=== PATIENT | female | born 1990 | race Caucasian/White ===

== ENCOUNTER 2018-10-15 14:30 | Outpatient (CLI) | payer OTHER ==
[2018-10-15 15:00] LABS: ADD MAN DIFF? NO
[2018-10-15 15:03] LABS: WHITE BLOOD COUNT 10.3 10^3/ul (4.8-10.8)
[2018-10-15 15:03] LABS: BASOPHILS % 0.4 % (0.0-2.0); EOSINOPHILS # 0.2 10^3/ul (0.0-0.5); EOSINOPHILS % 1.5 % (0.0-7.0); HEMATOCRIT 36.7 % (37.0-47.0); HEMOGLOBIN 12.5 g/dl (12.0-16.0); LYMPHOCYTES # 1.9 10^3/ul (0.8-2.9); LYMPHOCYTES % 17.9 % (15.0-51.0); MEAN CORPUSCULAR HEMOGLOBIN 30.4 pg (29.0-33.0); MEAN CORPUSCULAR HGB CONC 34.1 g/dl (32.0-37.0); MEAN CORPUSCULAR VOLUME 89.3 fl (82.0-101.0); MEAN PLATELET VOLUME 9.1 fl (7.4-10.4); MONOCYTE # 0.6 10^3/ul (0.3-0.9); MONOCYTES % 5.4 % (0.0-11.0); NEUTROPHIL # 7.7 10^3/ul (1.6-7.5); NEUTROPHILS % 74.2 % (39.0-77.0); PLATELET COUNT 364 10^3/UL (140-415); RED BLOOD COUNT 4.11 10^6/ul (4.20-5.40); RED CELL DISTRIBUTION WIDTH 13.3 % (11.5-14.5)
[2018-10-15 15:20] LABS: ALANINE AMINOTRANSFERASE 10 IU/L (13-69); ALBUMIN 3.6 g/dl (3.3-4.9); ALKALINE PHOSPHATASE 192 IU/L (42-121); ANION GAP 9 (5-13); ASPARTATE AMINO TRANSFERASE 18 IU/L (15-46); BILIRUBIN,INDIRECT 0.2 mg/dl (0-1.1); BILIRUBIN,TOTAL 0.2 mg/dl (0.2-1.3); BLOOD UREA NITROGEN 5 mg/dl (7-20); CALCIUM 9.6 mg/dl (8.4-10.2); CARBON DIOXIDE 19 mmol/L (21-31); CHLORIDE 111 mmol/L (97-110); CREATININE 0.38 mg/dl (0.44-1.00); Estimated GFR > 60 mL/min (>60); GLUCOSE 103 mg/dl (70-220); POTASSIUM 3.8 mmol/L (3.5-5.1); SODIUM 139 mmol/L (135-144); TOTAL PROTEIN 7.2 g/dl (6.1-8.1); URIC ACID 4.5 mg/dl (3.1-7.9)
[2018-10-15 15:23] LABS: ADD UMIC YES; UR ASCORBIC ACID 20 mg/dL (NEGATIVE); UR BACTERIA FEW /HPF (NONE SEEN); UR BILIRUBIN (Dip) NEGATIVE (NEGATIVE); UR BLOOD (Dip) 2+ mg/dL (NEGATIVE); UR CLARITY SLIGHTLY CLOUDY (CLEAR); UR COLOR YELLOW (YELLOW); UR GLUCOSE (Dip) NEGATIVE (NEGATIVE); UR KETONES (Dip) TRACE mg/dL (NEGATIVE); UR LEUKOCYTE ESTERASE (Dip) 1+ Leu/ul (NEGATIVE); UR MUCUS FEW /HPF (NONE SEEN); UR NITRITE (Dip) NEGATIVE (NEGATIVE); UR RBC 4 /HPF (0-5); UR SPECIFIC GRAVITY (Dip) 1.006 (1.003-1.030); UR SQUAMOUS EPITHELIAL CELL MODERATE /HPF (FEW); UR TOTAL PROTEIN (Dip) NEGATIVE (NEGATIVE); UR UROBILINOGEN (Dip) NEGATIVE (NEGATIVE); UR WBC 9 /HPF (0-5)
[2018-10-15 16:01] LABS: INR 1.01; PARTIAL THROMBOPLASTIN TIME 29.7 Sec (23.0-35.0); PROTIME 13.4 Sec (11.9-14.9)
== END 2018-10-15 16:27 | disposition home or self-care (01) ==
LOC: OBT 14:30 → L-D 14:30 → OBT 16:27
DX: O13.3 Gestational [pregnancy-induced] hypertension without significant proteinuria, third trimester (principal); Z3A.36 36 weeks gestation of pregnancy
CPT/HCPCS: 76818; 80053; 81001; 84560; 85025; 85384; 85610; 85730

== ENCOUNTER 2018-10-24 11:52 | Inpatient (IN) | payer OTHER ==
[2018-10-24 13:08] LABS: ADD UMIC YES; UR ASCORBIC ACID NEGATIVE (NEGATIVE); UR BACTERIA FEW /HPF (NONE SEEN); UR BILIRUBIN (Dip) NEGATIVE (NEGATIVE); UR BLOOD (Dip) NEGATIVE (NEGATIVE); UR CLARITY CLOUDY (CLEAR); UR COLOR YELLOW (YELLOW); UR GLUCOSE (Dip) NEGATIVE (NEGATIVE); UR KETONES (Dip) NEGATIVE (NEGATIVE); UR LEUKOCYTE ESTERASE (Dip) 2+ Leu/ul (NEGATIVE); UR MUCUS FEW /HPF (NONE SEEN); UR NITRITE (Dip) NEGATIVE (NEGATIVE); UR RBC 1 /HPF (0-5); UR SPECIFIC GRAVITY (Dip) 1.017 (1.003-1.030); UR SQUAMOUS EPITHELIAL CELL MANY /HPF (FEW); UR TOTAL PROTEIN (Dip) NEGATIVE (NEGATIVE); UR UROBILINOGEN (Dip) NEGATIVE (NEGATIVE); UR WBC 9 /HPF (0-5)
[2018-10-24 13:36] LABS: ADD MAN DIFF? NO
[2018-10-24 13:38] LABS: BASOPHILS % 0.3 % (0.0-2.0); EOSINOPHILS # 0.2 10^3/ul (0.0-0.5); EOSINOPHILS % 1.6 % (0.0-7.0); HEMATOCRIT 36.4 % (37.0-47.0); HEMOGLOBIN 12.4 g/dl (12.0-16.0); LYMPHOCYTES # 2.1 10^3/ul (0.8-2.9); LYMPHOCYTES % 17.8 % (15.0-51.0); MEAN CORPUSCULAR HEMOGLOBIN 30.6 pg (29.0-33.0); MEAN CORPUSCULAR HGB CONC 34.1 g/dl (32.0-37.0); MEAN CORPUSCULAR VOLUME 89.9 fl (82.0-101.0); MEAN PLATELET VOLUME 8.9 fl (7.4-10.4); MONOCYTE # 0.7 10^3/ul (0.3-0.9); NEUTROPHIL # 8.5 10^3/ul (1.6-7.5); NEUTROPHILS % 73.9 % (39.0-77.0); PLATELET COUNT 356 10^3/UL (140-415); RED BLOOD COUNT 4.05 10^6/ul (4.20-5.40); RED CELL DISTRIBUTION WIDTH 13.5 % (11.5-14.5)
[2018-10-24 13:38] LABS: WHITE BLOOD COUNT 11.5 10^3/ul (4.8-10.8)
[2018-10-24 13:57] LABS: INR 0.95; PROTIME 12.8 Sec (11.9-14.9)
[2018-10-24 13:58] LABS: PARTIAL THROMBOPLASTIN TIME 30.7 Sec (23.0-35.0)
[2018-10-24 13:59] LABS: ALANINE AMINOTRANSFERASE 10 IU/L (13-69); ALBUMIN 3.4 g/dl (3.3-4.9); ALBUMIN/GLOBULIN RATIO 0.94; ALKALINE PHOSPHATASE 222 IU/L (42-121); ANION GAP 9 (5-13); ASPARTATE AMINO TRANSFERASE 19 IU/L (15-46); BILIRUBIN,INDIRECT 0.2 mg/dl (0-1.1); BILIRUBIN,TOTAL 0.2 mg/dl (0.2-1.3); BLOOD UREA NITROGEN 6 mg/dl (7-20); CALCIUM 8.9 mg/dl (8.4-10.2); CARBON DIOXIDE 21 mmol/L (21-31); CHLORIDE 111 mmol/L (97-110); CREATININE 0.42 mg/dl (0.44-1.00); Estimated GFR > 60 mL/min (>60); GLUCOSE 77 mg/dl (70-220); SODIUM 141 mmol/L (135-144); URIC ACID 4.5 mg/dl (3.1-7.9)
[2018-10-24] MEDS ORDERED: CARBOPROST 250 MCG INJ IM (16:00)
[2018-10-24] MEDS ORDERED: MISOPROSTOL 200 MCG TAB PR (16:00)
[2018-10-24] MEDS ORDERED: IBUPROFEN 600 MG TAB PO (16:00)
[2018-10-24] MEDS ORDERED: LIDOCAINE 1% (MPF) 30 ML INJ INJ (16:00)
[2018-10-24] MEDS ORDERED: OXYTOCIN 30 UNITS/LR 500 ML IV ×3 (16:00)
[2018-10-24] MEDS ORDERED: METHYLERGONOVINE 0.2 MG INJ IM (16:00)
[2018-10-24] MEDS ORDERED: AMPICILLIN 2 GM/NS (PMX) 100 ML IV (16:00)
[2018-10-24] MEDS ORDERED: BUTORPHANOL 2 MG INJ IV (16:00)
[2018-10-24] MEDS: LACTATED RINGER'S 1,000 ML IV (16:19)
[2018-10-24 16:42] LABS: HEPATITIS B SURFACE ANTIGEN NEGATIVE (NEGATIVE)
[2018-10-24] MEDS: MAGNESIUM SULFATE 4 GM/100 ML 100 ML IV (17:09)
[2018-10-24] MEDS: MAGNESIUM SULFATE 20 GM/500 ML 500 ML IV (17:37)
[2018-10-24] MEDS: MISOPROSTOL 50 MCG CAPSULE PO ×2 (17:46→22:12)
[2018-10-24] MEDS ORDERED: AMPICILLIN 1 GM/NS (PMX) 50 ML IV (19:00)
[2018-10-25] MEDS: LACTATED RINGER'S 1,000 ML IV ×3 (01:06→19:15)
[2018-10-25 01:42] LABS: MAGNESIUM 4.5 mg/dl (1.7-2.5)
[2018-10-25] MEDS: MISOPROSTOL 50 MCG CAPSULE PO ×4 (02:06→14:01)
[2018-10-25] MEDS: MAGNESIUM SULFATE 20 GM/500 ML 500 ML IV ×2 (03:16→13:41)
[2018-10-25 06:12] LABS: MAGNESIUM 4.8 mg/dl (1.7-2.5)
[2018-10-25] MEDS: ACETAMINOPHEN 1000MG/100ML IV 100 ML IVPB (08:38)
[2018-10-25 13:01] LABS: MAGNESIUM 5.1 mg/dl (1.7-2.5)
[2018-10-25 15:09] LABS: RAPID PLASMA REAGIN NONREACTIVE (NR)
[2018-10-25] MEDS: LABETALOL HCL 20MG INJ IV (16:13)
[2018-10-25 19:05] LABS: MAGNESIUM 5.3 mg/dl (1.7-2.5)
[2018-10-25] MEDS: OXYTOCIN 30 UNITS/LR 500 ML IV (20:02)
[2018-10-26] MEDS: MAGNESIUM SULFATE 20 GM/500 ML 500 ML IV ×2 (00:20→10:58)
[2018-10-26 01:51] LABS: MAGNESIUM 5.1 mg/dl (1.7-2.5)
[2018-10-26] MEDS: LACTATED RINGER'S 1,000 ML IV ×2 (04:51→11:06)
[2018-10-26] MEDS ORDERED: LIDOCAINE 1.5%/EPI MPF (SDV) 30 ML VIAL (07:00)
[2018-10-26] MEDS ORDERED: OXYTOCIN 30 UNITS/LR 500 ML BAG IV (07:00)
[2018-10-26 07:41] LABS: MAGNESIUM 5.3 mg/dl (1.7-2.5)
[2018-10-26] MEDS ORDERED: FENTAnyl 2MCG/ML-ROPIV 0.2% 100 ML (08:27)
[2018-10-26] MEDS ORDERED: FENTAnyl 2MCG/ML-ROPIV 0.2% 100 ML BAG EPI (08:30)
[2018-10-26] MEDS ORDERED: NALOXONE (0.4 MG/ML) INJ IV ×2 (08:30→17:30)
[2018-10-26] MEDS ORDERED: ONDANSETRON 4 MG INJ IV ×3 (08:30→18:00)
[2018-10-26] MEDS ORDERED: DIPHENHYDRAMINE 50 MG INJ IV ×2 (08:30→17:30)
[2018-10-26] MEDS ORDERED: OXYTOCIN 30 UNITS/LR 500 ML IV ×2 (14:30→18:00)
[2018-10-26] MEDS ORDERED: CARBOPROST 250 MCG INJ IM ×2 (14:30→18:00)
[2018-10-26] MEDS ORDERED: MISOPROSTOL 200 MCG TAB PR ×2 (14:30→18:00)
[2018-10-26] MEDS: CEFAZOLIN 3 GM in DEXTROSE 5% 100 ML IV (14:30)
[2018-10-26] MEDS ORDERED: METHYLERGONOVINE 0.2 MG INJ IM ×2 (14:30→18:00)
[2018-10-26] MEDS ORDERED: AZITHROMYCIN 500MG/NS (PMX) 250 ML IVPB (15:00)
[2018-10-26] MEDS ORDERED: OXYTOCIN 10 UNIT INJ (15:04)
[2018-10-26] MEDS ORDERED: morphine SULFATE/PF (10 MG/10 ML) INJ (15:05)
[2018-10-26] MEDS ORDERED: FENTAnyl 50 MCG/ML VIAL ×2 (15:46→16:14)
[2018-10-26] MEDS ORDERED: MIDAZOLAM 1 MG/ML 2 ML INJ ×2 (15:47→16:08)
[2018-10-26] MEDS ORDERED: KETAMINE (50 MG/ML) 10 ML VIAL (16:12)
[2018-10-26] MEDS ORDERED: PHENYLephrine 10 MG INJ (16:22)
[2018-10-26] MEDS ORDERED: morphine 2 MG INJ IV (17:30)
[2018-10-26] MEDS ORDERED: SENNA/DOCUSATE NA (8.6MG/50MG) TAB PO (18:00)
[2018-10-26] MEDS ORDERED: LANOLIN HPA 1 PKT TOP (18:00)
[2018-10-26] MEDS ORDERED: BISACODYL 10 MG SUPP PR (18:00)
[2018-10-26] MEDS ORDERED: OXYCODONE/ACETAMINOPHEN (5/325) TAB PO (18:00)
[2018-10-26] MEDS ORDERED: ACETAMINOPHEN 325 MG TAB PO (18:00)
[2018-10-26] MEDS: KETOROLAC 30 MG INJ IV (18:07)
[2018-10-26] MEDS: OXYTOCIN 30 UNITS/LR 500 ML IV (18:19)
[2018-10-26] MEDS: AZITHROMYCIN 500MG/NS (PMX) 250 ML IV (18:34)
[2018-10-26] MEDS ORDERED: LABETALOL HCL 20MG INJ IV (19:30)
[2018-10-26] MEDS ORDERED: CA GLUCONATE (GM) 10% 10ML INJ IV (21:30)
[2018-10-27] MEDS: MAGNESIUM SULFATE 20 GM/500 ML 500 ML IV ×3 (00:12→13:42)
[2018-10-27] MEDS: OXYTOCIN 30 UNITS/LR 500 ML IV (00:13)
[2018-10-27 01:05] LABS: MAGNESIUM 4.8 mg/dl (1.7-2.5)
[2018-10-27] MEDS: CEFAZOLIN 1 GM/50 ML (PMX) 50 ML IVPB ×4 (02:00→17:39)
[2018-10-27] MEDS: LACTATED RINGER'S 1,000 ML IV (06:13)
[2018-10-27] MEDS: KETOROLAC 30 MG INJ IV ×2 (07:07→13:27)
[2018-10-27 08:17] LABS: ADD MAN DIFF? NO
[2018-10-27 08:19] LABS: WHITE BLOOD COUNT 11.2 10^3/ul (4.8-10.8)
[2018-10-27 08:19] LABS: BASOPHILS % 0.2 % (0.0-2.0); EOSINOPHILS # 0.1 10^3/ul (0.0-0.5); EOSINOPHILS % 0.6 % (0.0-7.0); HEMATOCRIT 33.7 % (37.0-47.0); HEMOGLOBIN 11.3 g/dl (12.0-16.0); LYMPHOCYTES % 18.1 % (15.0-51.0); MEAN CORPUSCULAR HEMOGLOBIN 30.5 pg (29.0-33.0); MEAN CORPUSCULAR HGB CONC 33.5 g/dl (32.0-37.0); MEAN CORPUSCULAR VOLUME 90.8 fl (82.0-101.0); MEAN PLATELET VOLUME 8.8 fl (7.4-10.4); MONOCYTE # 0.8 10^3/ul (0.3-0.9); NEUTROPHIL # 8.3 10^3/ul (1.6-7.5); NEUTROPHILS % 73.6 % (39.0-77.0); PLATELET COUNT 296 10^3/UL (140-415); RED BLOOD COUNT 3.71 10^6/ul (4.20-5.40); RED CELL DISTRIBUTION WIDTH 13.6 % (11.5-14.5)
[2018-10-27 08:47] LABS: ALANINE AMINOTRANSFERASE 14 IU/L (13-69); ALBUMIN 2.6 g/dl (3.3-4.9); ALBUMIN/GLOBULIN RATIO 0.86; ALKALINE PHOSPHATASE 166 IU/L (42-121); ANION GAP 8 (5-13); ASPARTATE AMINO TRANSFERASE 23 IU/L (15-46); BILIRUBIN,INDIRECT 0.2 mg/dl (0-1.1); BILIRUBIN,TOTAL 0.2 mg/dl (0.2-1.3); BLOOD UREA NITROGEN 3 mg/dl (7-20); CALCIUM 7.4 mg/dl (8.4-10.2); CARBON DIOXIDE 22 mmol/L (21-31); CHLORIDE 105 mmol/L (97-110); CREATININE 0.45 mg/dl (0.44-1.00); Estimated GFR > 60 mL/min (>60); GLUCOSE 78 mg/dl (70-220); POTASSIUM 3.9 mmol/L (3.5-5.1); SODIUM 135 mmol/L (135-144); TOTAL PROTEIN 5.6 g/dl (6.1-8.1)
[2018-10-27 08:49] LABS: MAGNESIUM 4.6 mg/dl (1.7-2.5)
[2018-10-27] MEDS: ENOXAPARIN 40 MG/0.4 ML SYG SC (10:03)
[2018-10-27 13:15] LABS: MAGNESIUM 4.8 mg/dl (1.7-2.5)
[2018-10-27] MEDS: OXYCODONE/ACETAMINOPHEN (5/325) TAB PO ×2 (16:33→21:41)
[2018-10-27] MEDS: MAGNESIUM HYDROXIDE 30ML CUP PO (20:42)
[2018-10-28] MEDS: IBUPROFEN 600 MG TAB PO (00:29)
[2018-10-28] MEDS: OXYCODONE/ACETAMINOPHEN (5/325) TAB PO ×3 (07:06→18:44)
[2018-10-28] MEDS ORDERED: MAGNESIUM HYDROXIDE 30ML CUP PO (09:00)
[2018-10-28] MEDS: MAGNESIUM HYDROXIDE 30ML CUP PO (09:33)
[2018-10-28] MEDS: ENOXAPARIN 40 MG/0.4 ML SYG SC (09:33)
[2018-10-29] MEDS: IBUPROFEN 600 MG TAB PO (00:29)
[2018-10-29] MEDS: ENOXAPARIN 40 MG/0.4 ML SYG SC (10:25)
[2018-10-29] MEDS: OXYCODONE/ACETAMINOPHEN (5/325) TAB PO (12:12)
== END 2018-10-29 14:53 | disposition home or self-care (01) | DRG 785 ==
LOC: OBT 11:52 → L-D 10-26 14:42 → PP1 10-26 20:09 → OBT 14:30 → L-D 14:30
PROC: 10D00Z1 Extraction of Products of Conception, Low, Open Approach (ICD-10-PCS; principal; 2018-10-26)
PROC: 0UB50ZZ Excision of Right Fallopian Tube, Open Approach (ICD-10-PCS; 2018-10-26)
DX: O13.4 Gestational [pregnancy-induced] hypertension without significant proteinuria, complicating childbirth (principal); N83.8 Other noninflammatory disorders of ovary, fallopian tube and broad ligament; Z3A.37 37 weeks gestation of pregnancy; Z37.0 Single live birth
CPT/HCPCS: 62322; 76815; 76818; 80053; 81001; 83735; 84560; 85025; 85384; 85610; 85730; 86592; 86850; 86900; 86901; 87340; 88104; 88305; 99464